=== PATIENT | male | born 1950 | race Caucasian/White ===

== ENCOUNTER 2017-07-17 16:21 | Emergency (ER) | payer OTHER ==
[~2017-07-17] VITALS: Ht 175.3 cm; Wt 105.2 kg
[~2017-07-17 16:21] MED LIST: ACTOS30 MG PO; ANTARA130 MG PO; CLONAZEPAM1 MG PO; CYMBALTA60 MG PO; FLOMAX0.4 MG PO; LEVOTHYROXINE50 MCG PO; LISINOPRIL10 MG PO; ZOLPIDEM TARTRA10 MG PO
[2017-07-17 16:55] LABS: BASOPHILS % 0.3 % (0.0-1.0); EOSINOPHILS % 0.3 % (0.0-6.0); HEMATOCRIT 43.9 % (38.2-49.6); HEMOGLOBIN 15.1 g/dL (14.0-18.0); LYMPHOCYTES # (AUTO) 1.3 (1.0-3.2); LYMPHOCYTES % 15.3 % (18.0-39.1); MEAN CORPUSCULAR HEMOGLOBIN 32.2 pg (28-32); MEAN CORPUSCULAR HGB CONC 34.4 g/dL (31-35); MEAN CORPUSCULAR VOLUME 93.6 fL (81-99); MONOCYTES # (AUTO) 0.7 (0.2-0.8); MONOCYTES % 7.9 % (4.4-11.3); NEUTROPHILS # (AUTO) 6.5 (2.1-6.9); NEUTROPHILS % 75.4 % (38.7-80.0); PLATELET COUNT 199 x10e3/uL (140-360); RED BLOOD COUNT 4.69 x10e6/uL (4.3-5.7); RED CELL DISTRIBUTION WIDTH 12.3 % (11.7-14.4)
[2017-07-17 17:06] LABS: INR 0.97; PROTHROMBIN TIME 13.4 seconds (11.9-14.5)
[2017-07-17 17:07] LABS: PARTIAL THROMBOPLASTIN TIME 25.9 seconds (23.8-35.5)
[2017-07-17 17:17] LABS: ALBUMIN 4.1 g/dL (3.5-5.0); ALBUMIN/GLOBULIN RATIO 0.9 (0.8-2.0); ANION GAP 12.8 mmol/L (8-16); CALCIUM 9.3 mg/dL (8.4-10.2); CREATININE, SERUM 1.53 mg/dL (0.72-1.25); POTASSIUM 3.8 mmol/L (3.5-5.1)
[2017-07-17 17:23] LABS: CREATINE KINASE MB 0.3 ng/mL (0.00-5.00); TROPONIN I 0.014 ng/mL (0-0.300)
--- NOTE | 2017-07-17 17:51 | Diagnostic Imaging Report ---
PROCEDURE:CHEST 2 VIEWS TECHNIQUE:PA and lateral chest INDICATION:Chest pain for one day COMPARISON:Patients [facility], , CHEST SINGLE (PORTABLE), 08/23/2015, 17:08. FINDINGS: The lungs are clear and symmetrically inflated. No pleural effusions. Normal heart size, mediastinal contour and pulmonary vasculature. Intact skeleton. CONCLUSION: Normal chest. Dictated by: Antonio Thurman M.D. on 07/17/2017 at 17:58 Electronically approved by: Antonio Thurman M.D. on 07/17/2017 at 17:58
== END 2017-07-17 18:47 | disposition left against medical advice (07) ==
LOC: ER 16:37
DX: R07.9 Chest pain, unspecified (principal)
CPT/HCPCS: 36415; 71020; 80053; 82550; 82553; 83690; 84484; 85025; 85610; 85730; 93005; 99283

== ENCOUNTER 2018-05-29 19:46 | Emergency (ER) | payer OTHER ==
[~2018-05-29] VITALS: Ht 175.3 cm; Wt 105.2 kg
[2018-05-29] MEDS ORDERED: TRICOR145 MG PO (20:18)
[2018-05-29] MEDS ORDERED: PANTOPRAZOLE SO40 MG PO (20:18)
[2018-05-29] MEDS ORDERED: DIATRIZOATE MEGL/DIATRIZOA SOD 30 ML BTL PO ONE (20:34)
[2018-05-29 20:45] LABS: INR 0.93; PROTHROMBIN TIME 13.3 seconds (11.9-14.5)
[2018-05-29 20:46] LABS: PARTIAL THROMBOPLASTIN TIME 27.6 seconds (23.8-35.5)
[2018-05-29 20:47] LABS: CLARITY,URINE CLEAR (CLEAR); COLOR,URINE YELLOW (YELLOW); KETONES,URINE NEGATIVE (NEGATIVE); LEUKOCYTE ESTERASE ,URINE NEGATIVE (NEGATIVE); NITRITE,URINE NEGATIVE (NEGATIVE); PROTEIN,URINE DIPSTICK NEGATIVE (NEGATIVE); URINE UROBILINOGEN 0.2 mg/dL (0.2 - 1)
[2018-05-29 20:48] LABS: BILIRUBIN,URINE NEGATIVE (NEGATIVE)
[2018-05-29 20:53] LABS: ALBUMIN 4.3 g/dL (3.5-5.0); ALBUMIN/GLOBULIN RATIO 1.2 (0.8-2.0); ANION GAP 14.9 mmol/L (8-16); CALCIUM 9.6 mg/dL (8.4-10.2); CREATININE, SERUM 2.2 mg/dL (0.72-1.25); POTASSIUM 3.9 mmol/L (3.5-5.1)
[2018-05-29 20:55] LABS: BACTERIA,URINE RARE /HPF; EPITHELIAL CELLS,URINE FEW /LPF; RBC,URINE 0-5 /HPF (0-5)
[2018-05-29 21:55] LABS: BASOPHILS % 0.5 % (0.0-1.0); EOSINOPHILS # (AUTO) 0.1 (0.0-0.4); EOSINOPHILS % 2.1 % (0.0-6.0); HEMATOCRIT 38.9 % (38.2-49.6); HEMOGLOBIN 12.8 g/dL (14.0-18.0); LYMPHOCYTES # (AUTO) 2.1 (1.0-3.2); LYMPHOCYTES % 36.7 % (18.0-39.1); MEAN CORPUSCULAR HEMOGLOBIN 31.5 pg (28-32); MEAN CORPUSCULAR HGB CONC 32.9 g/dL (31-35); MEAN CORPUSCULAR VOLUME 95.8 fL (81-99); MONOCYTES # (AUTO) 0.5 (0.2-0.8); PLATELET COUNT 240 x10e3/uL (140-360); RED BLOOD COUNT 4.06 x10e6/uL (4.3-5.7); RED CELL DISTRIBUTION WIDTH 13.4 % (11.7-14.4)
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
[2018-05-29] MEDS ORDERED: SODIUM CHLORIDE 0.9% 1000ML 1,000 ML IV ONE (23:15)
[2018-05-29 23:23] VITALS: BP 126/73
== END 2018-05-29 23:24 | disposition home or self-care (01) ==
LOC: ER 19:46
DX: R10.33 Periumbilical pain (principal); I25.10 Atherosclerotic heart disease of native coronary artery without angina pectoris; I10 Essential (primary) hypertension; E11.9 Type 2 diabetes mellitus without complications; E78.5 Hyperlipidemia, unspecified; N40.0 Benign prostatic hyperplasia without lower urinary tract symptoms; E07.9 Disorder of thyroid, unspecified; B19.20 Unspecified viral hepatitis C without hepatic coma; Z95.0 Presence of cardiac pacemaker; F10.21 Alcohol dependence, in remission; F19.21 Other psychoactive substance dependence, in remission; K42.9 Umbilical hernia without obstruction or gangrene; D64.9 Anemia, unspecified
CPT/HCPCS: 36415; 74176; 80053; 81001; 82150; 83690; 83735; 85025; 85610; 85730; 99284; J7030

== ENCOUNTER 2018-08-19 09:47 | Inpatient (IN) | payer OTHER, MEDICARE ==
[~2018-08-19] VITALS: Ht 172.7 cm; Wt 106.6 kg
[~2018-08-19 09:47] MED LIST changes: +PANTOPRAZOLE SO40 MG PO; +TRICOR145 MG PO
--- OUTSIDE RECORDS SUMMARY | 2018-08-19 09:50 | XMS REPORT | Clinical Summary ---
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 [facility] SC interval 206 [facility] QRSD interval 82 [facility] QT interval 454 [facility] QTC interval 454 [facility] P axis 1 29 [facility] QRS axis 1 -19 [facility] T wave axis 34 [facility] EKG impression Atrial-paced rhythm-Abnormal [facility] MUSE ECG-In automated comparison with ECG of 28-JUL-2017 03:08,-Electronic atrial pacemaker has replaced Atrial flutter-Vent. rate has decreased BY84 BPM-ST no longer depressed in Inferior leads-ST no longer depressed in Anterolateral leads-T wave inversion no longer evident in Inferior leads-Nonspecific T wave abnormality no longer evident in Anterolateral leads- Performing Organization Address City/State/Zipcode Phone Number [facility] MUSE [address] [place] [address] * ECG ED Preliminary Interpretation - NOT AN ORDER (05/17/2018 8:41 AM CDT) Narrative Performed At Eugenio Farris MD 05/17/2018 12:58 PM ECG ED Preliminary Interpretation - Not an Order Performed by: EUGENIO FARRIS Authorized by: EUGENIO FARRSI ECG reviewed by ED Physician in the absence of a aquatics coordinator: yes Rate: ECG rate:60 ECG rate assessment: normal Rhythm: Rhythm: paced Pacing: Capture:Complete Ectopy: Ectopy: none QRS: QRS axis:Normal QRS intervals:Normal ST segments: ST segments:Normal T waves: T waves: normal Comments: Read at 0849. after 08/18/2017 Insurance Payer Benefit Subscriber ID Type Phone Address Plan / Group TPL TPL-[employer]-DA xxxxxxxxxx TPL [facility] xxxxxxxxx HMO/PPO THCARE CHOICE/CHO ICE + ([place]) [place] [address] Advance Directives Patient has advance care planning documents, and code status on file. For more i nformation, please contact: Isael Ribeiro [address] [place] [address] Date Inactivated Comments Code Status Date Activated 07/31/2017 9:06 PM Full Code 07/28/2017 1:59 AM Code Status decision reached by: Patient
[2018-08-19] MEDS ORDERED: ONDANSETRON HCL INJ 2 MG/ML VIAL IV NR (10:35)
[2018-08-19] MEDS ORDERED: SODIUM CHLORIDE 0.9% 1000ML 1,000 ML IV STA (10:35)
[2018-08-19] MEDS ORDERED: HYDROMORPHONE 2MG/ML 2 MG/ML ML IV ONE (10:45)
[2018-08-19 11:42] LABS: BASOPHILS % 0.3 % (0.0-1.0); EOSINOPHILS # (AUTO) 0.1 (0.0-0.4); EOSINOPHILS % 0.9 % (0.0-6.0); HEMATOCRIT 41.6 % (38.2-49.6); HEMOGLOBIN 13.6 g/dL (14.0-18.0); LYMPHOCYTES % 15.8 % (18.0-39.1); MEAN CORPUSCULAR HEMOGLOBIN 31.3 pg (28-32); MEAN CORPUSCULAR HGB CONC 32.7 g/dL (31-35); MEAN CORPUSCULAR VOLUME 95.6 fL (81-99); MONOCYTES # (AUTO) 0.4 (0.2-0.8); MONOCYTES % 5.8 % (4.4-11.3); NEUTROPHILS % 76.4 % (38.7-80.0); PLATELET COUNT 201 x10e3/uL (140-360); RED BLOOD COUNT 4.35 x10e6/uL (4.3-5.7); RED CELL DISTRIBUTION WIDTH 13.3 % (11.7-14.4)
[2018-08-19 11:53] LABS: INR 1.01; PROTHROMBIN TIME 14.2 seconds (11.9-14.5)
[2018-08-19 11:54] LABS: PARTIAL THROMBOPLASTIN TIME 27.1 seconds (23.8-35.5)
[2018-08-19 12:07] LABS: ALANINE AMINOTRANSFERASE 16 IU/L (0-55); ALBUMIN 3.9 g/dL (3.5-5.0); ALKALINE PHOSPHATASE 32 IU/L (40-150); ANION GAP 13.9 mmol/L (8-16); BLOOD UREA NITROGEN 26 mg/dL (7-26); BUN/CREATININE RATIO 16 (6-25); CALCIUM 9.1 mg/dL (8.4-10.2); CARBON DIOXIDE 25 mmol/L (22-29); CHLORIDE 104 mmol/L (98-107); CREATINE KINASE 60 IU/L (30-200); CREATININE, SERUM 1.65 mg/dL (0.72-1.25); EST GLOMERULAR FILTRATION RATE 42 ML/MIN (60-); GLUCOSE 125 mg/dL (74-118); POTASSIUM 3.9 mmol/L (3.5-5.1); SODIUM 139 mmol/L (136-145)
--- NOTE | 2018-08-19 12:09 | Diagnostic Imaging Report ---
EXAMINATION: CHEST SINGLE (PORTABLE) COMPARISON: Chest x-ray 07/17/2017 INDICATION: Chest pain, epigastric pain DISCUSSION: Frontal view of the chest obtained at 1118 hours. HEART AND MEDIASTINUM: Mild cardiomegaly. Pacemaker wires terminate in the right atrium and right ventricle. No vascular congestion. LINES: None. LUNGS: The lungs are well inflated and clear. No pneumonia or pulmonary edema. PLEURA: No pleural effusion or pneumothorax. BONES AND SOFT TISSUES: No focal osseous lesion. The soft tissues are normal. IMPRESSION: No acute cardiopulmonary disease. Signed by: Dr. Mariluz Griggs MD on 08/19/2018 12:06 PM
[2018-08-19 12:10] LABS: COLOR,URINE YELLOW (YELLOW)
[2018-08-19 12:11] LABS: BACTERIA,URINE RARE /HPF; BILIRUBIN,URINE NEGATIVE (NEGATIVE); CLARITY,URINE CLEAR (CLEAR); EPITHELIAL CELLS,URINE RARE /LPF; KETONES,URINE NEGATIVE (NEGATIVE); LEUKOCYTE ESTERASE ,URINE NEGATIVE (NEGATIVE); NITRITE,URINE NEGATIVE (NEGATIVE); PROTEIN,URINE DIPSTICK NEGATIVE (NEGATIVE); RBC,URINE 0-5 /HPF (0-5); URINE UROBILINOGEN 0.2 mg/dL (0.2 - 1)
[2018-08-19 12:43] LABS: MAGNESIUM 2.2 MG/DL (1.3-2.1)
[2018-08-19] MEDS ORDERED: DIATRIZOATE MEGL/DIATRIZOA SOD 30 ML BTL PO ONE (12:45)
--- NOTE | 2018-08-19 14:45 | Diagnostic Imaging Report ---
CT Abdomen and Pelvis without contrast INDICATION: Abdominal pain/hernia, incarcerated umbilical hernia on arrival x 2 h, now reduced TECHNIQUE: Thin collimation axial images obtained from the diaphragm to the level of the pubic symphysis without nonionic intravenous contrast. Oral contrast was administered. Dose reduction techniques used: Automated exposure control, adjustment of the mAs and/or kVp according to patient size, standardized low-dose protocol, and/or iterative reconstruction technique. RADIATION DOSE: Total DLP: 823.98 mGy*cm Estimated effective dose: (DLP x 0.015 x size factor) mSv CTDIvol has been reviewed. It is below the limits set by the Radiation Protocol Committee (RPC). COMPARISON: CT abdomen/pelvis 05/29/2018. ABDOMEN FINDINGS: Lung Bases: Pacemaker leads terminate in the right atrial right ventricle. The heart is mildly enlarged. Minimal bibasilar atelectasis. Liver: Normal in attenuation without mass. Gallbladder: Present and appears normal. No ductal dilatation. Pancreas: Diffuse fatty atrophy. No mass or ductal dilatation. Spleen: Normal size without mass. Adrenal Glands: No evidence for mass. Kidneys: Right: Mildly atrophic.. No cortical mass or hydronephrosis Left: Mildly atrophic.. No cortical mass or hydronephrosis Lymph Nodes: No enlarged abdominal or intraperitoneal lymph nodes.. Aorta: Normal in diameter and diffusely calcified PELVIS FINDINGS: Bowel: Stomach: Contains enteric contrast and appears normal. Small Bowel: Contains enteric contrast. Normal in diameter with normal wall thickness. Large Bowel: Mild to moderate burden of stool. There are a few scattered diverticula. No associated inflammation. Appendix: Normal. Bladder: Well distended and normal. Ureters: No ureteral dilatation or calculus. No free fluid or fluid collection. Soft tissues: Fat-containing umbilical hernia measures 8 cm with an aperture of 17 mm. No change in size. There is inflammation of the fat and the peritoneum immediately posterior. No fluid in the hernia sac. There are bilateral fat-containing inguinal hernias, left larger than right. No fluid in the hernia sacs. No bowel containing hernias. Bones: Mild degenerative changes of the spine. IMPRESSION: 1. Large fat-containing of focal hernia with induration of the adjacent peritoneum suggestive of incarceration. No bowel or fluid in the hernia sac. Stable fat-containing inguinal hernias. 2. No evidence for bowel obstruction or inflammation. Normal appendix. 3. Mild renal atrophy. No renal calculus or obstructive uropathy Signed by: Dr. Mariluz Griggs MD on 08/19/2018 2:41 PM
[2018-08-19] MEDS ORDERED: DEXTROSE 50% SYRINGE 50 ML IV PRN (16:15)
[2018-08-19] MEDS ORDERED: ONDANSETRON HCL INJ 2 MG/ML VIAL IV PRN (16:15)
[2018-08-19] MEDS ORDERED: MORPHINE SULFATE 2 MG/ML SYR IV PRN (16:15)
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
[2018-08-19] MEDS: INSULIN LISPRO 100 UNIT/1 ML 3ML VIAL SQ SCH ×2 (16:30→20:14)
[2018-08-19] MEDS: SODIUM CHLORIDE 0.9% 1000ML 1,000 ML IV SCH (16:58)
[2018-08-19] MEDS ORDERED: LORAZEPAM INJ 2 MG/ML VIAL IV PRN (17:15)
[2018-08-19 17:20] VITALS: BP 149/72
[2018-08-19] MEDS ORDERED: HYDRALAZINE HCL 20 MG/ML VIAL IV PRN (17:30)
[2018-08-19] MEDS ORDERED: ACETAMINOPHEN 1000 MG/100 ML IV PRN (17:30)
[2018-08-19 17:42] VITALS: BP 149/79
[2018-08-19 17:46] VITALS: BP 149/79
[2018-08-19] MEDS ORDERED: ASPIRIN325 MG PO (17:54)
--- NOTE | 2018-08-19 18:09 | Consultation ---
DATE OF CONSULTATION: August 19, 2018 REFERRING PHYSICIAN: Dr. Conway. HISTORY OF PRESENT ILLNESS: The patient is a 67-year-old male who presents with complaints of pain and swelling in his umbilicus. He says he has had a hernia there for a long time. He has got increased swelling and pain over the last few days, became much worse today. Some associated nausea. No vomiting. CT of the abdomen done today reveals umbilical hernia containing fat but no bowel involvement. PAST MEDICAL HISTORY: Significant for hypertension for which he takes lisinopril; diabetes, he takes Actos; hyperlipidemia, takes TriCor. He also takes Flomax, Cymbalta, and clonazepam. PREVIOUS SURGERIES: Only previous surgery is a permanent pacemaker. ALLERGIES: HE HAS NO KNOWN ALLERGIES. FAMILY HISTORY: Noncontributory. 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 REVIEW OF SYSTEMS: As stated above. He has had no fever. No weight loss. PHYSICAL EXAMINATION GENERAL: The patient is awake and alert, in no distress. VITAL SIGNS: Normal. HEENT: Reveals no scleral icterus. NECK: Has no masses. There is no jugular venous distention. LUNGS: Equal breath sounds. Clear bilaterally. CARDIAC: Regular rate and rhythm. Normal S1, S2 without murmur, S3, or S4. ABDOMEN: Soft. There is a tender mass in the umbilicus that is not completely reducible. There is no organomegaly. EXTREMITIES: There is no edema. Pulses are palpable. NEUROLOGIC: Grossly intact. ASSESSMENT: A 67-year-old male with a chronically incarcerated umbilical hernia that has become worse today and more painful and symptomatic. He has been admitted to the hospital to try. PLAN: Repair of the hernia to be done tomorrow. Procedure was explained to the patient including risks, benefits, and alternatives. He understands. He has had the opportunity to ask questions. Thank you for asking me see to see Mr. Burgos. Job#: [id number] EARL
--- NOTE | 2018-08-19 19:52 | NUR ---
Received change of shift report from AM nurse. Walking rounds completed.
[2018-08-19 20:24] VITALS: BP 137/60
--- NOTE | 2018-08-19 22:00 | NUR ---
Patient in bed. Family at bedside. Denies pain at this time. IV intact to left AC with NS at 100. BS 108 with no insulin require. Snack given. Informed patient of NPO after MN. Patient verbalized understanding. Continue monitor.
[2018-08-19] MEDS ORDERED: MORPHINE SULFATE INJ 4 MG/ML INJ IV PRN (23:15)
[2018-08-20] VITALS (7 sets, daily range): BP systolic 99–141; BP diastolic 56–70
--- NOTE | 2018-08-20 01:00 | NUR ---
Patient received pain meds for pain =4-5 to abd. Continue monitor.
[2018-08-20] MEDS: SODIUM CHLORIDE 0.9% 1000ML 1,000 ML IV SCH ×2 (02:06→12:06)
[2018-08-20 05:09] LABS: BASOPHILS % 0.6 % (0.0-1.0); EOSINOPHILS # (AUTO) 0.1 (0.0-0.4); EOSINOPHILS % 2.3 % (0.0-6.0); HEMATOCRIT 36.2 % (38.2-49.6); HEMOGLOBIN 11.9 g/dL (14.0-18.0); LYMPHOCYTES # (AUTO) 2.4 (1.0-3.2); LYMPHOCYTES % 44.7 % (18.0-39.1); MEAN CORPUSCULAR HEMOGLOBIN 31.3 pg (28-32); MEAN CORPUSCULAR HGB CONC 32.9 g/dL (31-35); MEAN CORPUSCULAR VOLUME 95.3 fL (81-99); MONOCYTES # (AUTO) 0.4 (0.2-0.8); MONOCYTES % 7.6 % (4.4-11.3); NEUTROPHILS # (AUTO) 2.3 (2.1-6.9); NEUTROPHILS % 43.8 % (38.7-80.0); PLATELET COUNT 169 x10e3/uL (140-360); RED CELL DISTRIBUTION WIDTH 13.6 % (11.7-14.4)
--- NOTE | 2018-08-20 05:29 | NUR ---
Patient resting quitly at this time with no c/o.
[2018-08-20 05:38] LABS: ALBUMIN 3.2 g/dL (3.5-5.0); ANION GAP 10.3 mmol/L (8-16); CALCIUM 8.6 mg/dL (8.4-10.2); CREATININE, SERUM 1.48 mg/dL (0.72-1.25); POTASSIUM 4.3 mmol/L (3.5-5.1)
[2018-08-20 05:59] LABS: FREE T4 (FREE THYROXINE) 0.82 ng/dL (0.9-1.8); THYROID STIMULATING HORMONE 2.699 uIU/mL (0.350-4.940)
--- NOTE | 2018-08-20 06:59 | NUR ---
Consent signed by patient.
--- NOTE | 2018-08-20 07:00 | NUR ---
rounded with the shift supervisor film processing nurse, patient aware of change. Patient in no distress, call martinez within reach.
[2018-08-20] MEDS ORDERED: BACITRACIN 50,000 UNIT VIAL ONE ×2 (07:05→16:34)
[2018-08-20] MEDS ORDERED: BUPIVACAINE HCL 0.5% INJ 30 ML VIAL INJ ONE ×2 (07:05→16:33)
[2018-08-20] MEDS ORDERED: NON-FORMULARY MEDICATION (Duloxetine Hcl (Cymbalta) 60 MG) PO SCH (07:15)
--- NOTE | 2018-08-20 07:28 | NUR ---
Patient alert and oriented, vitals stable, leaving floor on bed to OR.
[2018-08-20] MEDS: INSULIN LISPRO 100 UNIT/1 ML 3ML VIAL SQ SCH ×4 (07:30→21:00)
--- NOTE | 2018-08-20 08:26 | NUR ---
Patient returned to floor alert and oriented, unable to perform procedure at this time due to physician having an emergency.
[2018-08-20] MEDS: FENOFIBRATE 145 MG TAB PO SCH (09:00)
[2018-08-20] MEDS ORDERED: LEVOTHYROXINE SODIUM 50 MCG TAB PO SCH (09:00)
[2018-08-20] MEDS: LISINOPRIL 10 MG TAB PO SCH (09:00)
[2018-08-20] MEDS: CLONAZEPAM 1 MG TAB PO SCH (09:00)
[2018-08-20] MEDS: PANTOPRAZOLE 40 MG 10ML VIAL IV SCH (09:00)
[2018-08-20] MEDS: TAMSULOSIN HCL 0.4 MG CAP PO SCH (09:00)
[2018-08-20] MEDS ORDERED: FENOFIBRATE 145 MG TAB PO SCH (09:00)
--- NOTE | 2018-08-20 10:30 | NUR ---
ATTEMPTED TO SEE PT IN ROOM NOT THERE WILL ATTEMPT AT LATER TIME
[2018-08-20] MEDS ORDERED: FENTANYL CITRATE/PF 100MCG/2 ML INJ ONE (14:08)
[2018-08-20] MEDS ORDERED: MIDAZOLAM HCL 2 MG/2 ML VIAL ONE (14:08)
[2018-08-20] MEDS ORDERED: KETAMINE HCL INJ 50 MG/ML 10 ML VIAL ONE (14:08)
[2018-08-20] MEDS ORDERED: NEOSTIGMINE 5 MG/5ML SYR ONE (14:25)
[2018-08-20] MEDS ORDERED: LABETALOL HCL 5 MG/ML 20ML VIAL ONE (14:25)
[2018-08-20] MEDS ORDERED: LIDOCAINE HCL 2% LOCAL INJ 5 ML SDV VIAL INJ ONE (14:25)
[2018-08-20] MEDS ORDERED: SEVOFLURANE INHAL SOLN 250 ML PEN BTL ONE (14:25)
[2018-08-20] MEDS ORDERED: GLYCOPYRROLATE INJ 1MG/ 5 ML SYR ONE (14:25)
[2018-08-20] MEDS ORDERED: PROPOFOL IV EMULSION 10 MG/ML 20 ML VIAL ONE (14:25)
[2018-08-20] MEDS ORDERED: ONDANSETRON HCL INJ 2 MG/ML VIAL ONE (14:25)
[2018-08-20] MEDS ORDERED: ROCURONIUM BROMIDE 10 MG/ML 5ML VIAL ONE (14:25)
--- NOTE | 2018-08-20 16:47 | NUR ---
pt off unit for procedure. vs stable
[2018-08-20] MEDS ORDERED: MORPHINE SULFATE INJ 4 MG/ML INJ IV PRN (17:45)
[2018-08-20] MEDS ORDERED: ONDANSETRON HCL INJ 2 MG/ML VIAL IV PRN (17:45)
[2018-08-20] MEDS ORDERED: HYDROMORPHONE 2MG/ML 2 MG/ML ML ONE (18:05)
[2018-08-20] MEDS: DULOXETINE HCL 30 MG DELAYED RELEASE PO SCH (21:16)
[2018-08-20] MEDS: HYDROCODONE/APAP 10MG-325MG TAB PO PRN (21:17)
--- NOTE | 2018-08-20 22:52 | Operative Report ---
DATE OF PROCEDURE: August 20, 2018 PREOPERATIVE DIAGNOSIS: Incarcerated umbilical hernia. POSTOPERATIVE DIAGNOSIS: Incarcerated umbilical hernia PROCEDURE: Repair of incarcerated umbilical hernia with partial omentectomy. PATTERN MOLDER: None. ANESTHESIA: General. INDICATIONS AND FINDINGS: Patient is a 67-year-old male who presented with complaints of pain and swelling in his umbilicus. Workup revealed a hernia containing probable omentum. At surgery, there was umbilical hernia containing large amount of omentum with fascial defect that was about 1.8 cm. TECHNIQUE: After adequate general endotracheal anesthesia, patient in supine position, the abdomen was prepped and draped in sterile fashion with ChloraPrep solution. Transverse incision was made inferior to the umbilicus, carried down through the subcutaneous tissue. The umbilicus was dissected free from the herniated mass. Herniated mass was very large about 7 cm in diameter containing omentum. Hernia mass was dissected free from the umbilicus and from the surrounding tissues down to the fascia. It was freed from the fascia throughout circumference of the hernia defect which was about 1.8 cm. The herniated mass could not easily be reduced the fascia. Partial omentectomy was done. The omentum was divided between clamps and then ligated with 2-0 Vicryl. This removed the portion of the omentum as well as some of the hernia sac. It divided omentum and easily reduced beneath the fascia. Hernia was then repaired transversely directly with a running suture of #1 Prolene. Hemostasis was seen to be adequate. The wound was then infiltrated with 0.5% Marcaine. The umbilicus was sutured to the fascia using 3-0 Vicryl. Subcutaneous tissue was closed with a running suture of 3-0 Vicryl. Skin was closed with soheila. Sterile dressing was applied. Patient tolerated the procedure well. Estimated blood loss was 25 mL. There were no complications. All counts were correct. Patient was taken to the recovery room in satisfactory condition. Job#: [id number] HERBER cc:Arturo Conway MD
[2018-08-21] VITALS (8 sets, daily range): BP systolic 126–148; BP diastolic 56–69
--- NOTE | 2018-08-21 01:00 | NUR ---
patient has been asked if he has been voiding through the night. patient states he has had urine output on this shift. Will continue to monitor patient urine output.
[2018-08-21] MEDS: HYDROCODONE/APAP 10MG-325MG TAB PO PRN ×3 (04:03→19:12)
[2018-08-21 04:05] LABS: BASOPHILS % 0.1 % (0.0-1.0); HEMATOCRIT 38.2 % (38.2-49.6); HEMOGLOBIN 12.8 g/dL (14.0-18.0); LYMPHOCYTES # (AUTO) 0.7 (1.0-3.2); LYMPHOCYTES % 9.8 % (18.0-39.1); MEAN CORPUSCULAR HEMOGLOBIN 31.1 pg (28-32); MEAN CORPUSCULAR HGB CONC 33.5 g/dL (31-35); MEAN CORPUSCULAR VOLUME 92.7 fL (81-99); MONOCYTES # (AUTO) 0.2 (0.2-0.8); MONOCYTES % 2.6 % (4.4-11.3); NEUTROPHILS # (AUTO) 6.5 (2.1-6.9); NEUTROPHILS % 86.8 % (38.7-80.0); PLATELET COUNT 194 x10e3/uL (140-360); RED BLOOD COUNT 4.12 x10e6/uL (4.3-5.7); RED CELL DISTRIBUTION WIDTH 13.2 % (11.7-14.4)
[2018-08-21 04:23] LABS: CALCIUM 8.6 mg/dL (8.4-10.2); CREATININE, SERUM 1.3 mg/dL (0.72-1.25); MAGNESIUM 1.8 MG/DL (1.3-2.1)
[2018-08-21] MEDS: LEVOTHYROXINE SODIUM 50 MCG TAB PO SCH (05:39)
[2018-08-21] MEDS: SODIUM CHLORIDE 0.9% 1000ML 1,000 ML IV SCH (06:04)
[2018-08-21] MEDS ORDERED: TYLENOL WITH C1 EACH PO (06:42)
[2018-08-21] MEDS: INSULIN LISPRO 100 UNIT/1 ML 3ML VIAL SQ SCH ×4 (07:30→20:51)
--- NOTE | 2018-08-21 08:30 | NUR ---
PT RECEIVED SITTING UP IN BED, AA/O X3. IN ROOM. NO C/O AT PRESENT. ASSESSMENT COMPLETE, VSS. DRESSING TO LOWER MIDABD C/D/I. ASSISTED OOB TO INCREASE AMBULATION PRIOR TO D/C TODAY. TOLERATES WELL, DENIES PAIN.
[2018-08-21] MEDS: TAMSULOSIN HCL 0.4 MG CAP PO SCH (09:40)
[2018-08-21] MEDS: PANTOPRAZOLE 40 MG 10ML VIAL IV SCH (09:40)
[2018-08-21] MEDS: LISINOPRIL 10 MG TAB PO SCH (09:40)
[2018-08-21] MEDS: CLONAZEPAM 1 MG TAB PO SCH (09:40)
[2018-08-21] MEDS: FENOFIBRATE 145 MG TAB PO SCH (09:40)
--- NOTE | 2018-08-21 11:24 | NUR ---
SOCIAL WORK INITIAL ASSESSMENT Licensed Physical Therapist to bedside to discuss plan of care with patient/family. CM/SW role and care transitions discussed. Anticipated discharge plan discussed along with duration of care. CM/SW discussed patients right to make decisions in care. CM/SW work hours given. Patient lives: IN OWN HOME WITH Admit/Transfer: VIA HOME POA/Emergency contact: REJI MONTOYA [phone] Current/Previous Home Health: NONE PCP/Follow-up Care: TONY Current/Previous DME: NONE Other Services: NONE Employment Status: [employer]IST [employer] Areas of Concerns: NONE Referral Needs: NONE Education Needs: NONE IMM/MOORE given and signed (if applicable): NA Goal for discharge: RETURN HOME INDEPENDENTLY CM/SW left business card at the bedside with contact information. Name and number was also written on the patients whiteboard. Patient verbalized understanding of discussion. CM will follow-up with ongoing discharge and transition of care needs.
--- NOTE | 2018-08-21 14:22 | NUR ---
UPDATED FRANCHESCA, RISK CONTROL CONSULTANT ON D/C PER SURGERY, PT NOT PASSING GAS. ADVISED TO HOLD DISCHARGE UNTIL PASSES GAS. PT ENCOURAGED TO CONTINUE TO INCREASE AMBULATION
[2018-08-21] MEDS: DULOXETINE HCL 30 MG DELAYED RELEASE PO SCH (20:51)
[2018-08-22] VITALS: BP 152/68
[2018-08-22 04:00] VITALS: BP 153/73
[2018-08-22 05:56] LABS: BASOPHILS % 0.6 % (0.0-1.0); EOSINOPHILS # (AUTO) 0.2 (0.0-0.4); EOSINOPHILS % 2.3 % (0.0-6.0); HEMATOCRIT 38.9 % (38.2-49.6); HEMOGLOBIN 12.9 g/dL (14.0-18.0); LYMPHOCYTES # (AUTO) 2.1 (1.0-3.2); LYMPHOCYTES % 31.8 % (18.0-39.1); MEAN CORPUSCULAR HEMOGLOBIN 31.5 pg (28-32); MEAN CORPUSCULAR HGB CONC 33.2 g/dL (31-35); MEAN CORPUSCULAR VOLUME 95.1 fL (81-99); MONOCYTES # (AUTO) 0.5 (0.2-0.8); MONOCYTES % 7.9 % (4.4-11.3); NEUTROPHILS # (AUTO) 3.7 (2.1-6.9); NEUTROPHILS % 56.8 % (38.7-80.0); PLATELET COUNT 188 x10e3/uL (140-360); RED BLOOD COUNT 4.09 x10e6/uL (4.3-5.7); RED CELL DISTRIBUTION WIDTH 13.5 % (11.7-14.4)
[2018-08-22] MEDS: POLYETHYLENE GLYCOL 3350 17 GM PACK PO SCH ×3 (05:59→17:00)
[2018-08-22] MEDS: DOCUSATE SODIUM 100 MG CAP PO SCH ×3 (05:59→17:00)
[2018-08-22] MEDS: LEVOTHYROXINE SODIUM 50 MCG TAB PO SCH (05:59)
[2018-08-22 06:30] LABS: ANION GAP 12.9 mmol/L (8-16); CALCIUM 9.1 mg/dL (8.4-10.2); CREATININE, SERUM 1.53 mg/dL (0.72-1.25); MAGNESIUM 2.1 MG/DL (1.3-2.1); POTASSIUM 4.9 mmol/L (3.5-5.1)
--- NOTE | 2018-08-22 07:00 | NUR ---
Walking rounds done and report taken from night. Call martinez within reach.
[2018-08-22] MEDS: INSULIN LISPRO 100 UNIT/1 ML 3ML VIAL SQ SCH ×3 (07:30→16:30)
[2018-08-22 08:00] VITALS: BP 153/73
[2018-08-22 08:15] VITALS: BP 138/72
[2018-08-22] MEDS: CLONAZEPAM 1 MG TAB PO SCH (08:55)
[2018-08-22] MEDS: FENOFIBRATE 145 MG TAB PO SCH (08:55)
[2018-08-22] MEDS: TAMSULOSIN HCL 0.4 MG CAP PO SCH (08:55)
[2018-08-22] MEDS: LISINOPRIL 10 MG TAB PO SCH (08:55)
[2018-08-22] MEDS: PANTOPRAZOLE 40 MG 10ML VIAL IV SCH (08:55)
[2018-08-22] MEDS: HYDROCODONE/APAP 10MG-325MG TAB PO PRN (10:16)
[2018-08-22 12:14] VITALS: BP 156/75
[2018-08-22] MEDS ORDERED: BISACODYL 10 MG SUPP PR ONE (14:00)
--- NOTE | 2018-08-22 15:00 | NUR ---
Patient is ambulating, +flatus without any c/o pain or nausea. Per Patient he is ready to go home.
[2018-08-22 16:00] VITALS: BP 138/74
--- NOTE | 2018-08-22 17:52 | Discharge Summary ---
ADMISSION DIAGNOSES 1. Incarcerated umbilical hernia. 2. Hypertension. 3. Hyperlipidemia. 4. Type 2 diabetes. 5. Hypothyroidism. 6. BPH. 7. Acute kidney injury versus chronic kidney disease. 8. Hypermagnesemia. 9. Anxiety. DISCHARGE DIAGNOSES 1. Incarcerated umbilical hernia. 2. Hypertension. 3. Hyperlipidemia. 4. Type 2 diabetes. 5. Hypothyroidism. 6. BPH. 7. Acute kidney injury versus chronic kidney disease. 8. Hypermagnesemia. 9. Anxiety. 10. Status post hernia repair. HISTORY: Patient has a history of hyperlipidemia, hypertension, BPH, type 2 diabetes, and hypothyroidism. SURGICAL HISTORY: Pacer put in July 2017. FAMILY HISTORY: Unknown as the patient says he was basically an orphan. SOCIAL HISTORY: Noncontributory. HOSPITAL COURSE: A 67-year-old male complains of sharp, constant nagging pain around the abdominal area that began yesterday morning after eating [employer]. He had a bowel movement thinking the pain would improve, but it did not. Throughout the day, the pain continued to worsen. He denied nausea, vomiting, diarrhea, and fever. On admission, a chest x-ray showed no acute cardiopulmonary disease. CT of the abdomen showed large fat-containing umbilical hernia with induration of the adjacent peritoneum suggestive of incarceration. No bowel or fluid in the sac. Stable fat-containing inguinal hernia. No evidence of obstruction or inflammation. Patient had a repair of incarcerated umbilical hernia with partial omentectomy on August 20, 2018. The patient tolerated the procedure well. Was eating and passing gas. The patient can discharge home per surgery. Vital signs stable. Patient afebrile. He will follow up with Dr. Coreas in 1 week and primary care in 1-2 weeks. Patient understands discharge instructions and agrees to plan. DICTATED BY FRANCHESCA BROWN NP GORDO ELAM MD Job#: [id number] OR
--- NOTE | 2018-08-22 18:35 | NUR ---
Patient discharge home with written instructions and prescriptions. Both patient and spouse verbalized understanding.
== END 2018-08-22 18:50 | disposition home or self-care (01) | DRG 354 ==
LOC: ER 09:47 → ERHOLD 16:17 → IMCU 17:10 → OBSVTOIN 08-20 13:13
PROVIDERS: ADMIT Internal Medicine; ATTEND Internal Medicine
PROC: 0DBU0ZZ Excision of Omentum, Open Approach (ICD-10-PCS; 2018-08-20)
PROC: 0WQF0ZZ Repair Abdominal Wall, Open Approach (ICD-10-PCS; principal; 2018-08-20 08:30)
DX: K42.0 Umbilical hernia with obstruction, without gangrene (principal); N17.9 Acute kidney failure, unspecified; I10 Essential (primary) hypertension; E11.9 Type 2 diabetes mellitus without complications; E78.5 Hyperlipidemia, unspecified; Z79.84 Long term (current) use of oral hypoglycemic drugs; Z95.0 Presence of cardiac pacemaker; E03.9 Hypothyroidism, unspecified; D29.1 Benign neoplasm of prostate; E83.41 Hypermagnesemia; F41.9 Anxiety disorder, unspecified
CPT/HCPCS: 36415; 71045; 74176; 80048; 80053; 81001; 82150; 82550; 82553; 82948; 83036; 83605; 83690; 83735; 84439; 84443; 84484; 85025; 85610; 85730; 87086; 88302; 93005; 99284; G0378; J2001; J2250; J2270; J2405; J7030; J7799